=== PATIENT | male | born 1995 | race Two or more races ===

== ENCOUNTER 2022-06-27 14:38 | Emergency (ER) | payer SELFPAY ==
[~2022-06-27] VITALS: Ht 182.9 cm; Wt 93.0 kg
--- NOTE | 2022-06-27 15:35 | NUR ---
Receved pt 26 yrs male came from home c/o chest pain for 3day not releved
--- NOTE | 2022-06-27 15:45 | NUR ---
SEEN BY DR HORTA
--- NOTE | 2022-06-27 17:00 | NUR ---
DINESES CHEST pain 0/10 no sob
--- NOTE | 2022-06-27 18:10 | NUR ---
AT bed side spook with pt
--- NOTE | 2022-06-27 18:12 | NUR ---
Patient discharged to home in stable condition. Written and verbal after care instructions given. Patient verbalizes understanding of instruction.
[2022-06-27 18:26] VITALS: BP 128/65
== END 2022-06-27 18:27 | disposition home or self-care (01) ==
LOC: ER 14:38
DX: R07.89 Other chest pain (principal)
CPT/HCPCS: 71045-TC